=== PATIENT | female | born 1960 | race Caucasian/White ===

== ENCOUNTER → 2022-05-03 | Day surgery (SDC) | payer BC ==
[~2022-05-03] MED LIST: B12; DAILY VITAMIN1 EAC3 PO; FENTANYL CITRATE/PF 100MCG/2 ML INJ ONE; HYOSCYAMINE SULFATE 0.5 MG/ML INJ ONE; MIDAZOLAM HCL 2 MG/2 ML VIAL ONE; OMEGA 3 PO; VITAMIN D
[2022-05-03 17:35] VITALS: BP 127/88
== END | disposition home or self-care (01) ==
LOC: OR 10:57
PROVIDERS: ATTEND Internal Medicine Gastroenterology
DX: K29.50 Unspecified chronic gastritis without bleeding (principal); D12.2 Benign neoplasm of ascending colon; D12.5 Benign neoplasm of sigmoid colon; K31.7 Polyp of stomach and duodenum; K20.90 Esophagitis, unspecified without bleeding; K57.30 Diverticulosis of large intestine without perforation or abscess without bleeding; K64.8 Other hemorrhoids; I10 Essential (primary) hypertension; E66.9 Obesity, unspecified; Z01.810 Encounter for preprocedural cardiovascular examination; Z01.812 Encounter for preprocedural laboratory examination; Z20.822 Contact with and (suspected) exposure to COVID-19; Z68.31 Body mass index [BMI] 31.0-31.9, adult; Z83.71 Family history of colonic polyps
CPT/HCPCS: 0223U; 36415; 43239; 43251; 45378; 45385; 93005; J1980; J2250; J3010